=== PATIENT | male | born 1975 | race Caucasian/White ===

== ENCOUNTER → 2021-06-17 | Outpatient (CLI) | payer BC ==
[2021-06-17 19:10] LABS: HEMOGLOBIN 16.1 gm/dl (14.0-17.5); RED BLOOD COUNT 5.03 M/UL (4.20-5.50); WHITE BLOOD COUNT 13.1 K/UL (4.5-11.0)
[2021-06-17 19:34] LABS: BUN/CREATININE RATIO 14 (0-10)
== END ==
LOC: RAD 18:22
PROVIDERS: Nurse Practitioner
DX: M10.071 Idiopathic gout, right ankle and foot (principal); M25.571 Pain in right ankle and joints of right foot
CPT/HCPCS: 36415; 73610; 80053; 84550; 85025